=== PATIENT | female | born 1960 | race Two or more races ===

== ENCOUNTER 2019-03-03 18:45 | Emergency (ER) | payer OTHER ==
[~2019-03-03] VITALS: Ht 160 cm; Wt 62.6 kg
--- NOTE | 2019-03-03 19:28 | NUR ---
BIB SELF. AAOX4. NO RESP DISTRESS NOTED. BREATHING EVEN AND UNLABORED. AMBULATORY. C/O COUGH W/ YELLOW PHLEGM, CHEST CONGESTION, SORE THROAT, HEADACHE AND DIARRHEA ON AND OFF FOR THE PAST MONTH BUT WORST IN THE PAST 3 DAYS. PT ALSO REPORTS OF FEELING FATIGUED. TO ER BED 11. MD AT BEDSIDE.
--- NOTE | 2019-03-03 19:42 | NUR ---
EKG AND LAB AT BEDSIDE
[2019-03-03 19:49] LABS: BASOPHILS % (AUTO) 0.4 % (0.0-2.0); EOSINOPHILS % (AUTO) 2.4 % (0.0-6.0); HEMATOCRIT 41 % (33-45); HEMOGLOBIN 13.4 g/dL (11.5-14.8); LYMPHOCYTES # (AUTO) 2.1 /CMM (0.8-4.8); LYMPHOCYTES % (AUTO) 31.5 % (20.0-44.0); MEAN CORPUSCULAR HGB CONC 33 g/dl (31.0-36.0); MEAN CORPUSCULAR VOLUME 85 fL (82-100); MONOCYTES # (AUTO) 0.4 /CMM (0.1-1.30); MONOCYTES % (AUTO) 5.8 % (2.0-12.0); NEUTROPHILS # (AUTO) 4.1 /CMM (1.8-8.9); NEUTROPHILS % (AUTO) 59.9 % (43.0-81.0); PLATELET COUNT (AUTO) 260 /CMM (150-450); RED BLOOD CELL COUNT(AUTO) 4.79 MIL/uL (4.0-5.2); WHITE BLOOD COUNT (AUTO) 6.8 K/uL (4.3-11.0)
[2019-03-03] MEDS ORDERED: AMOXICILLIN TRIHYDRATE 250 MG CAPSULE ONE (19:59)
[2019-03-03] MEDS ORDERED: AMOXICILLIN TRIHYDRATE 250 MG CAPSULE PO ONE (20:00)
--- NOTE | 2019-03-03 20:05 | NUR ---
XRAY AT BEDSIDE
[2019-03-03 20:08] LABS: CALCIUM, SERUM 8.8 mg/dL (8.5-10.1); CARBON DIOXIDE 29 mmol/L (21-32); CHLORIDE 105 mmol/L (98-107); CREATININE 0.7 mg/dL (0.6-1.3); GLUCOSE 78 mg/dL (74-106); POTASSIUM 4.3 mmol/L (3.5-5.1); SODIUM SERUM 140 mmol/L (136-145); UREA NITROGEN, BLOOD 13 mg/dL (7-18)
[2019-03-03 20:13] LABS: ALBUMIN 3.5 g/dL (3.4-5.0); BILIRUBIN,TOTAL 0.2 mg/dL (0.2-1.0); TOTAL PROTEIN, SERUM 7.2 g/dL (6.4-8.2)
[2019-03-03 21:15] LABS: THYROID STIMULATING HORMONE 0.66 uIU/mL (0.358-3.74)
[2019-03-03 21:25] VITALS: BP 140/80
--- NOTE | 2019-03-03 21:46 | NUR ---
Patient discharged to home in stable condition. Written and verbal after care instructions given. Patient verbalizes understanding of instruction. Pt ambulatory with a steady gait
== END 2019-03-03 21:26 | disposition home or self-care (01) ==
LOC: ER 18:49
DX: J06.9 Acute upper respiratory infection, unspecified (principal); F43.9 Reaction to severe stress, unspecified; I10 Essential (primary) hypertension; Z60.2 Problems related to living alone
CPT/HCPCS: 36415; 71045-TC; 80048-TC; 80076-TC; 84443-TC; 84484-TC; 85025-TC

== ENCOUNTER 2019-04-07 15:59 | Emergency (ER) | payer SELFPAY ==
--- NOTE | 2019-04-07 16:10 | NUR ---
CALLED TO TRIAGE, ON THE PHONE SIGNALING NOT READY.
--- NOTE | 2019-04-07 18:01 | NUR ---
Patient left without being seen by ER Physician
== END 2019-04-07 18:05 | disposition left against medical advice (07) ==
LOC: ER 16:01
DX: Z53.21 Procedure and treatment not carried out due to patient leaving prior to being seen by health care provider (principal)